=== PATIENT | female | born 1960 | race Caucasian/White ===

== ENCOUNTER 2017-09-23 05:23 | Day surgery (SDC) | payer BC ==
[2017-09-23] MEDS ORDERED: fentaNYL 100 MCG/2 ML SDV IV ONE ×3 (05:24→06:32)
[2017-09-23] MEDS ORDERED: Midazolam 1 MG/ML 2 ML SDV IV ONE ×3 (05:24→06:33)
[2017-09-23] MEDS ORDERED: Sodium Chloride 0.9% 10 ML Syringe FLUSH PRN (06:00)
[2017-09-23] MEDS ORDERED: Dextrose 5%-0.45% NaCl 1,000 ML IV SCH (06:00)
[2017-09-23] MEDS ORDERED: Midazolam 1 MG/ML 2 ML SDV ONE (06:13)
[2017-09-23] MEDS ORDERED: fentaNYL 100 MCG/2 ML SDV ONE (06:13)
[2017-09-23 08:39] VITALS: BP 106/49
--- NOTE | 2017-09-23 09:43 | OR ---
DATE: 09/23/2017 PROCEDURE: Esophagogastroduodenoscopy and multiple pinch biopsies. INSTRUMENT USED: GIF-H180 Olympus video panendoscope. PREMEDICATIONS: No oral topical anesthesia used. Fentanyl 100 mcg intravenous, Versed 2 mg intravenous. 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 INDICATION: The patient with long-standing heartburn, dependent on PPI. Esophagogastroduodenoscopy is performed for detection of any active erosive lesions, Dial esophagus and/or malignancy also under consideration, H. pylori status to be determined, endoscopic hemostasis therapy if needed. PROCEDURE IN DETAIL: The scope was passed with ease. Adequate visualization of the esophagus was made from proximal to distal areas. No upper esophageal lesions identified. No distal esophageal stricture. No uphill or downhill esophageal varices. No Aditi-Reyes tear. No evidence of erosive esophagitis by [place] criteria. No esophageal polyp or tumor mass identified. Z-line was seen at around 40 cm distal to the oral verge, configuration consistent with Grade 1 by Zapp classification. No proximal gastric varices noted. Gastric fundus examination by retroflexion showed no polypoid lesions. No gastric ulcer, malignant mass, or vascular ectasia identified. Duodenal bulb showed no ulcer. Visualized second part of duodenum is unremarkable. Multiple pinch biopsies were taken from the gastric antrum and proximal body and sent for PyloriTek test for H. pylori, and if negative in an hour, the tissue is to be sent for histopathology. No bleeding was noted from any of the visualized areas at the completion of examination. Photographs were taken of the duodenal bulb, gastric antrum, fundus, and distal esophagus. IMPRESSION: Normal study. The patient tolerated the procedure well. [facility] /[id number]
== END 2017-09-23 08:44 | disposition home or self-care (01) ==
LOC: DL.ENDO 05:23
PROVIDERS: ATTEND Internal Medicine Gastroenterology
DX: R12 Heartburn (principal); I10 Essential (primary) hypertension; E78.5 Hyperlipidemia, unspecified; E66.9 Obesity, unspecified; Z88.8 Allergy status to other drugs, medicaments and biological substances
CPT/HCPCS: 43239; J2250; J3010; J7042

== ENCOUNTER 2017-09-24 05:58 | Day surgery (SDC) | payer BC ==
[2017-09-24] MEDS ORDERED: Midazolam 1 MG/ML 2 ML SDV IV ONE ×7 (05:59→07:10)
[2017-09-24] MEDS ORDERED: fentaNYL 100 MCG/2 ML SDV IV ONE ×4 (05:59→07:13)
[2017-09-24] MEDS ORDERED: Dextrose 5%-0.45% NaCl 1,000 ML IV SCH (06:00)
[2017-09-24] MEDS ORDERED: Midazolam 1 MG/ML 2 ML SDV ONE (06:12)
[2017-09-24] MEDS ORDERED: fentaNYL 100 MCG/2 ML SDV ONE (06:12)
--- NOTE | 2017-09-24 11:02 | OR ---
DATE: 09/24/2017 PROCEDURE: Total colonoscopy. INSTRUMENT USED: CF-H180 [place] Olympus video colonoscope. PREMEDICATIONS: Fentanyl 125 mcg intravenous, Versed 4 mg intravenous. Nasal O2 cannula. The procedure was done under pulse oximetry, BP recording, and environmental monitoring technician. INDICATION: Screening colonoscopic examination was done for detection of any polypoid lesions and removal, endoscopic hemostasis therapy if needed. DESCRIPTION OF PROCEDURE: Initial rectal exam was unremarkable. Rigid anoscopy was normal. The colonoscope was passed with ease. Few scattered diverticula were noted in the distal left colon. The scope was passed with ease up to the ileocecal area, photographs were taken of the normal-appearing cecum, identified by landmarks of appendiceal orifice and double bulged ileocecal folds. No bleeding was noted from any of the visualized areas at the commencement of the examination. No stricture. No vascular ectasia. No large isolated ulcerations seen. No evidence of diffuse inflammatory bowel disease in the form of friability, contact bleeding, or ulcerations. No polyp or tumor mass identified. Probing the proximal sides of folds and flexures, using adequate distention and clearing of the stool material, withdrawal of the scope was made, cecum to rectum time over 6 minutes. No bleeding was noted from any of the visualized areas at the completion of examination. IMPRESSION: Diverticulosis. The patient tolerated the procedure well. [facility] /[id number]
[2017-09-24 14:43] VITALS: BP 112/77
== END 2017-09-24 09:25 | disposition home or self-care (01) ==
LOC: DL.ENDO 05:58
PROVIDERS: ATTEND Internal Medicine Gastroenterology
DX: Z12.11 Encounter for screening for malignant neoplasm of colon (principal); K57.30 Diverticulosis of large intestine without perforation or abscess without bleeding; I10 Essential (primary) hypertension; E78.5 Hyperlipidemia, unspecified; E66.9 Obesity, unspecified
CPT/HCPCS: 45378; J2250; J3010; J7042